=== PATIENT | female | born 1995 | race Hispanic/Latino ===

== ENCOUNTER 2023-11-14 22:55 | Observation (INO) | payer MEDICAID ==
[~2023-11-14] VITALS: Ht 160 cm; Wt 55.3 kg
[2023-11-14 22:56] VITALS: BP 113/72; PULSE 103; RESP 20
[2023-11-14 23:22] LABS: APPEARANCE,URINE CLEAR (CLEAR); BILIRUBIN,URINE NEGATIVE (NEGATIVE); COLOR,URINE COLORLESS (YELLOW); GLUCOSE, URINE (UA) NEGATIVE (NEGATIVE); KETONES,URINE NEGATIVE (NEGATIVE); LEUKOCYTE ESTERASE ,URINE 250 Leu/uL (NEGATIVE); NITRATE,URINE NEGATIVE (NEGATIVE); OCCULT BLOOD,URINE NEGATIVE (NEGATIVE); PROTEIN,URINE NEGATIVE (NEGATIVE); UROBILINOGEN,URINE 0.2 mg/dL (0.2-1.0)
[2023-11-14 23:23] LABS: ADD UA MICROSCOPIC YES
[2023-11-14 23:29] LABS: MUCUS,URINE RARE LPF (None Seen); RBC,URINE 0-1 /HPF (0-1); SQUAMOUS EPITHELIAL CELL,UR RARE /HPF (0-2)
[2023-11-15] MEDS ORDERED: TERBUTALINE SULFATE VIAL 1MG/ML SQ SCH
[2023-11-15] MEDS ORDERED: CEFTRIAXONE 1G VIAL IVPB SCH
[2023-11-15] MEDS: LACTATED RINGERS 1000ML 1,000 ML IV SCH ×2 (00:34→01:10)
[2023-11-15] MEDS ORDERED: CELESTONE SOLUSPAN 6 MG/ML 5ML VIAL IM SCH ×2 (03:00)
== END 2023-11-15 07:50 | disposition home or self-care (01) ==
LOC: EDH 22:55 → LDH 22:56
PROVIDERS: ADMIT Internal Medicine; ATTEND Internal Medicine
DX: O60.03 Preterm labor without delivery, third trimester (principal); Z3A.32 32 weeks gestation of pregnancy
CPT/HCPCS: 87088; 81001; 96372 ×2; 96365; 96366; 96361; G0378 ×9; G0379; J7120; J0702; J3105; J0696; 96360

== ENCOUNTER 2023-11-16 00:22 | Observation (INO) | payer MEDICAID ==
[~2023-11-16] VITALS: Ht 157.5 cm; Wt 54.9 kg
[2023-11-16] MEDS ORDERED: CELESTONE SOLUSPAN 6 MG/ML 5ML VIAL IM SCH (01:00)
== END 2023-11-16 01:05 | disposition home or self-care (01) ==
LOC: LDH 00:22
PROVIDERS: ADMIT Internal Medicine; ATTEND Internal Medicine
DX: Z36.89 Encounter for other specified antenatal screening (principal); Z3A.33 33 weeks gestation of pregnancy
CPT/HCPCS: 96372; G0379; G0378